=== PATIENT | female | born 1990 | race Caucasian/White ===

== ENCOUNTER 2017-06-07 15:24 | Emergency (ER) | payer MEDICAID ==
[2017-06-07 15:48] VITALS: BP 132/79
[2017-06-07] MEDS ORDERED: ACETAMINOPHEN 325 MG TABLET PO STA (15:48)
[2017-06-07] MEDS ORDERED: DEXAMETHASONE 10 MG/ML VIAL PO STA (18:38)
--- NOTE | 2017-06-07 18:40 | ED Physician Documentation ---
History of Present Illness - Stated complaint Stated Complaint: SORE THROAT - Chief complaint Chief Complaint: Heent - Additonal information Additional information: hx from pt 27 female sore throat and fever for 2 weeks worse this AM - hard to swalow and breathe no cough occ brief abd pain not now denies preg Review of Systems Constitutional: reports: Fever Ears: denies: Ear pain Throat: reports: Sore throat Respiratory: denies: Cough : denies: Now EGA Skin: denies: Rash PD PAST MEDICAL HISTORY - Past Medical History Past Medical History: No - Past Surgical History Past Surgical History: No - Present Medications Home Medications: Ambulatory Orders Medication Instructions Recorded Confirmed No Known Home Medications [No 06/07/17 06/07/17 Known Home Medications] - Allergies Allergies/Adverse Reactions: Allergies Allergy/AdvReac Type Severity Reaction Status Date / Time promethazine [From Phenergan] Allergy Unknown Verified 06/07/17 15:48 - Social History Does the pt smoke?: No Smoking Status: Never smoker PD ED PE NORMAL - Vitals Vital signs reviewed: Yes - General General: Alert and oriented X 3 - HEENT HEENT: PERRL, Moist mucous membranes. No: Pharynx benign (erythema cobblestonign, no exudate, no trismus, no sig edema) - Neck Neck: Other (anterior no posteriopr adenopathy and no pain with tracheal manipulation) - Cardiac Cardiac: RRR - Respiratory Respiratory: No respiratory distress, Clear bilaterally, Other (no wheeze or stridor) - Abdomen Abdomen: Non tender, No organomegaly - Derm Derm: Normal color Results - Vitals Vitals: Vital Signs - 24 hr 06/07/17 15:46 Temperature 38.5 C H Heart Rate 117 H Respiratory 18 Rate Blood Pressure 132/79 H O2 Saturation 99 Oxygen O2 Source Room air - Labs Labs: Laboratory Tests 06/07/17 15:54 Group A Strep Rapid Negative PD MEDICAL DECISION MAKING - ED course ED course: neg strep pt said she felt better after apap rpt VS were not done prior to dc Departure - Departure Disposition: 01 Home, Self Care Clinical Impression: Pharyngitis Qualifiers: Pharyngitis/tonsillitis etiology: unspecified etiology Qualified Code(s): J02.9 - Acute pharyngitis, unspecified Condition: Good Instructions: ED Pharyngitis Viral Report Pending Comments: You may have strep throat, but the rapid strep test was negative An official throat culture will also be run and if it is positive the ER staff will call you to start antibiotics In the mean time we gave you a dose of decadron which will significantly help with the pain and swelling and help you feel better Rest and drink plenty of fluids Return if worse Forms: Activity restrictions Discharge Date/Time: 06/07/17 18:48
[2017-06-07] MEDS ORDERED: BENZOCAINE/MENTHOL LOZENGE MM STA (18:43)
== END 2017-06-07 18:48 | disposition home or self-care (01) ==
LOC: ED 15:24
DX: J02.9 Acute pharyngitis, unspecified (principal)
CPT/HCPCS: 87070; 87430; 99282; 99283; A9270

== ENCOUNTER 2017-08-25 17:10 | Outpatient (CLI) | payer MEDICAID | END 2017-08-25 17:11 | disposition home or self-care (01) | LOC: LAB.R 17:10 | PROVIDERS: ATTEND Internal Medicine | DX: J02.9 Acute pharyngitis, unspecified (principal) | CPT/HCPCS: 87070; 87077 ==